=== PATIENT | female | born 1975 | race African-American/Black ===

== ENCOUNTER → 2019-11-13 | Outpatient (CLI) | payer OTHER | LOC: MRI 11-11 11:52 | PROVIDERS: ATTEND Nurse Practitioner | DX: M25.461 Effusion, right knee (principal); M25.561 Pain in right knee ==

== ENCOUNTER → 2019-11-23 | Outpatient (CLI) | payer OTHER | LOC: LAB 13:38 | PROVIDERS: ATTEND Nurse Practitioner | DX: R05 Cough (principal); M79.10 Myalgia, unspecified site; J02.9 Acute pharyngitis, unspecified; Z20.828 Contact with and (suspected) exposure to other viral communicable diseases ==